=== PATIENT | female | born 1975 | race Caucasian/White ===

== ENCOUNTER 2019-08-13 16:25 | Emergency (ER) | payer MEDICAID ==
[~2019-08-13] VITALS: Ht 144.8 cm; Wt 71.1 kg
--- NOTE | 2019-08-13 17:21 | NUR ---
PT HERE WITH C/O HEADACHE, INTERMITTENT. PT STATES HEADACHE GOT WORSE WITH ASSOCIATED DIZZINESS STARTING TODAY. PER FAMILY, PT FELL AT HOME, UNKNOWN LOC, UNKNOWN IF HIT HEAD. PT DOES STATE NAUSEA AND VOMITTING. PT DENIES BLOOD THINNERS OR ANY DAILY MEDICATIONS. PT AAO X 4, SENSITIVE TO SOUND AND LIGHT. PT DRESSED IN GOWN AND ATTACHED TO MONITOR. MED REC COMPLETED. CALL LIGHT WITHIN REACH, NAD, ROOM AIR.
--- NOTE | 2019-08-13 17:53 | NUR ---
AT BEDSIDE FOR EXAM.
[2019-08-13] MEDS ORDERED: MECLIZINE CHEWABLE 25 MG TAB ONE (17:57)
[2019-08-13] MEDS ORDERED: DIAZEPAM 5 MG TABLET ONE (17:57)
[2019-08-13] MEDS ORDERED: KETOROLAC 30 MG/1 ML ONE (17:58)
[2019-08-13] MEDS ORDERED: DIAZEPAM 5 MG TABLET PO/NG ONE (18:00)
[2019-08-13] MEDS ORDERED: MECLIZINE CHEWABLE 25 MG TAB PO ONE (18:00)
[2019-08-13] MEDS ORDERED: KETOROLAC 30 MG/1 ML IM ONE (18:00)
--- NOTE | 2019-08-13 18:02 | NUR ---
PT MEDICATED PER ORDERS.
--- NOTE | 2019-08-13 18:08 | NUR ---
PT AMBULATORY TO RESTROOM WITH STEADY GAIT.
--- NOTE | 2019-08-13 19:04 | NUR ---
CT CALLED REGARDING DELAY IN SCAN, NO ANSWER.
--- NOTE | 2019-08-13 19:10 | NUR ---
PT TO CT.
--- NOTE | 2019-08-13 19:22 | NUR ---
PT BACK FROM CT.
--- NOTE | 2019-08-13 19:59 | NUR ---
LAB AT BEDSIDE. [facility] SENT.
--- NOTE | 2019-08-13 20:44 | NUR ---
REPORT GIVEN TO INES WHALEY. CARE TRANSFERRED AT THIS TIME.
--- NOTE | 2019-08-13 20:44 | NUR ---
report from INES Locke. assuming care of pt at this time.
[2019-08-13 20:51] LABS: MICROSCOPIC NOT IND
[2019-08-13 20:54] LABS: CULTURE INDICATED? NO
[2019-08-13 20:58] VITALS: BP 118/52
--- NOTE | 2019-08-13 20:59 | NUR ---
PT RESTING IN ROOM WITH LIGHTS DIMMED. VSS. NO NEEDS EXPRESSED. CALL LIGHT WITHIN REACH. AWAITING LAB RESULTS.
== END 2019-08-13 21:22 | disposition home or self-care (01) ==
LOC: ED 21:15
DX: G44.219 Episodic tension-type headache, not intractable (principal); R42 Dizziness and giddiness
CPT/HCPCS: 70450; 80047; 81003; 93005; 96372; 99284; J1885

== ENCOUNTER 2019-10-24 14:21 | Emergency (ER) | payer MEDICAID ==
[~2019-10-24] VITALS: Ht 142.2 cm; Wt 75.4 kg
[2019-10-24 14:37] VITALS: BP 129/74
--- NOTE | 2019-10-24 14:53 | NUR ---
US ATTEMPT TO CALL PT-PT NOT IN LOBBY/PIT.
[2019-10-24] MEDS ORDERED: PROPARACAINE OPHTH 0.5%, 15ML EACHEYE ONE (15:00)
[2019-10-24] MEDS ORDERED: FLUORESCEIN OPHTHALMIC 1 MG STRIP EACHEYE ONE (15:00)
--- NOTE | 2019-10-24 17:08 | NUR ---
STENCIL PRINTER: PT WALKED BY TO ROOM BY AMANDA ALMEIDA AT THIS TIME.
== END 2019-10-24 18:17 | disposition home or self-care (01) ==
LOC: ED 18:10
DX: H10.32 Unspecified acute conjunctivitis, left eye (principal); H00.15 Chalazion left lower eyelid; M79.661 Pain in right lower leg; R94.31 Abnormal electrocardiogram [ECG] [EKG]; F17.200 Nicotine dependence, unspecified, uncomplicated
CPT/HCPCS: 93005; 99284